=== PATIENT | male | born 1950 | race Caucasian/White ===

== ENCOUNTER 2021-10-30 09:22 | Inpatient (IN) | payer MEDICAID ==
[~2021-10-30] VITALS: Ht 162.6 cm; Wt 58.2 kg
[2021-10-30 10:06] LABS: BASOPHILS % 0.5 % (0.0-2.0); EOSINOPHILS % 2.4 % (0.0-5.0); HEMATOCRIT. 42.6 % (42.0-52.0); HEMOGLOBIN. 14.4 g/dL (14.0-18.0); LYMPHOCYTES % 14.7 % (20.0-50.0); MEAN CORPUSCULAR HEMOGLOBIN 33.4 pg (28.0-32.0); MEAN PLATELET VOLUME 10.2 fl (7.4-10.4); MONOCYTES % 6.8 % (2.0-8.0); NEUTROPHILS % 75.6 % (40.0-76.0); PLATELET 51 x1000/uL (130-400); RED BLOOD CELL COUNT 4.31 mill/uL (4.7-6.1); RED CELL DISTRIBUTION WIDTH 14.9 % (11.6-14.6)
[2021-10-30 10:11] LABS: CHLORIDE 96 mEq/L (98-107)
[2021-10-30] MEDS ORDERED: POTASSIUM CHLORIDE 20MEQ TABLET SR PO NR (10:30)
[2021-10-30] MEDS ORDERED: POTASSIUM CHLORIDE 20MEQ TABLET SR PO SCH (10:45)
[2021-10-30 11:24] LABS: CLARITY URINE CLEAR (CLEAR); COLOR URINE YELLOW (YELLOW); KETONES URINE TRACE (NEGATIVE); LEUKOCYTE ESTERASE URINE NEGATIVE (NEGATIVE); NITRITE URINE NEGATIVE (NEGATIVE); OCCULT BLOOD URINE NEGATIVE (NEGATIVE); PROTEIN URINE NEGATIVE (NEGATIVE); SPECIFIC GRAVITY URINE 1.004 (1.005-1.030); UROBILINOGEN URINE 0.2 E.U./dL (0.2-1.0)
[2021-10-30] MEDS ORDERED: PANTOPRAZOLE SODIUM 40 MG/VIAL IV NR (12:30)
[2021-10-30] MEDS ORDERED: MAGNESIUM 2 G PREMIX 50 ML IV NR (12:30)
[2021-10-30] MEDS ORDERED: ONDANSETRON HCL 4MG/2ML INJ IV PRN (13:30)
[2021-10-30] MEDS ORDERED: GUAIFENESIN 200MG/10ML SUGAR FREE UDC PO PRN (13:30)
[2021-10-30] MEDS ORDERED: CLONIDINE 0.1MG TABLET PO PRN (13:30)
[2021-10-30] MEDS ORDERED: MAGNESIUM/ALUMINUM HYDROXIDE/SIMETHICONE 30ML UDC PO PRN (13:30)
[2021-10-30] MEDS ORDERED: ACETAMINOPHEN 325MG TABLET PO PRN ×2 (13:30)
[2021-10-30] MEDS ORDERED: NALOXONE HCL 0.4MG/ML VIAL IV PRN (13:45)
[2021-10-30] MEDS: SODIUM CHLORIDE 0.9% 1,000 ML IV SCH ×2 (14:11→22:30)
[2021-10-30 16:00] VITALS: BP 143/68
[2021-10-30 16:26] VITALS: BP 143/68
[2021-10-30 16:54] LABS: CARCINO EMBRYONIC ANTIGEN 4.8 ng/ml
[2021-10-30 20:00] VITALS: BP 155/67
[2021-10-31] VITALS: BP 136/78
[2021-10-31 04:00] VITALS: BP 153/87
[2021-10-31 06:14] LABS: BASOPHILS % 0.7 % (0.0-2.0); EOSINOPHILS % 3.8 % (0.0-5.0); HEMATOCRIT. 38.1 % (42.0-52.0); HEMOGLOBIN. 12.6 g/dL (14.0-18.0); LYMPHOCYTES % 19.8 % (20.0-50.0); MEAN CORPUSCULAR HEMOGLOBIN 33.2 pg (28.0-32.0); MEAN CORPUSCULAR VOLUME 99.9 fL (80.0-94.0); MEAN PLATELET VOLUME 9.5 fl (7.4-10.4); MONOCYTES % 9.6 % (2.0-8.0); NEUTROPHILS % 66.1 % (40.0-76.0); PLATELET 59 x1000/uL (130-400); RED BLOOD CELL COUNT 3.81 mill/uL (4.7-6.1); RED CELL DISTRIBUTION WIDTH 15.1 % (11.6-14.6)
[2021-10-31 06:39] LABS: CHLORIDE 108 mEq/L (98-107)
[2021-10-31 06:56] LABS: PHOSPHORUS 2.6 mg/dL (2.5-4.9)
[2021-10-31 08:00] VITALS: BP 142/67
[2021-10-31] MEDS: SODIUM CHLORIDE 0.9% 1,000 ML IV SCH (09:18)
[2021-10-31] MEDS: OMEPRAZOLE 20MG CAPSULE EXTENDED RELEASE PO SCH (09:18)
[2021-10-31] MEDS: HYDROCODONE/ACETAMINOPHEN 5/325MG TABLET PO PRN ×2 (10:16→14:40)
[2021-10-31 12:00] VITALS: BP 143/84
[2021-10-31 16:00] VITALS: BP 122/62
[2021-10-31 20:00] VITALS: BP 137/67
[2021-11-01 04:00] VITALS: BP 147/69
[2021-11-01] MEDS: OMEPRAZOLE 20MG CAPSULE EXTENDED RELEASE PO SCH (06:34)
[2021-11-01 06:54] LABS: HEMOGLOBIN. 12.8 g/dL (14.0-18.0); MEAN CORPUSCULAR HEMOGLOBIN 33.7 pg (28.0-32.0); MEAN CORPUSCULAR VOLUME 99.8 fL (80.0-94.0); MEAN PLATELET VOLUME 9.1 fl (7.4-10.4); PLATELET 74 x1000/uL (130-400); RED BLOOD CELL COUNT 3.81 mill/uL (4.7-6.1); RED CELL DISTRIBUTION WIDTH 15.3 % (11.6-14.6)
[2021-11-01 07:00] LABS: PROTHROMBIN TIME 10.9 sec (9.6-11.0)
[2021-11-01 07:29] LABS: CHLORIDE 109 mEq/L (98-107)
[2021-11-01 08:00] VITALS: BP 120/70
[2021-11-01] MEDS ORDERED: OMEP20CA14 PO ×3 (08:58→10:47)
[2021-11-01 09:00] VITALS: BP 120/70
[2021-11-01] MEDS ORDERED: LOPERAMIDE HCL 2MG CAPSULE PO NR (09:15)
[2021-11-01] MEDS ORDERED: LOPE2CAP PO (10:47)
[2021-11-01 12:50] LABS: PLATELET ESTIMATE DECREASED
== END 2021-11-01 11:00 | disposition home or self-care (01) | DRG 253 ==
LOC: ER 09:22 → 7WST 12:44 → EDBEDREQ 12:51 → ENRESERV 13:17 → CANRESERV 13:17 → SUPCPDRO 13:18 → ENRESERV 13:29
PROVIDERS: ADMIT Internal Medicine; ATTEND Internal Medicine
DX: K92.2 Gastrointestinal hemorrhage, unspecified (principal); D69.6 Thrombocytopenia, unspecified; C80.1 Malignant (primary) neoplasm, unspecified; E87.1 Hypo-osmolality and hyponatremia; R16.0 Hepatomegaly, not elsewhere classified; D53.9 Nutritional anemia, unspecified; K76.0 Fatty (change of) liver, not elsewhere classified; E11.9 Type 2 diabetes mellitus without complications; E87.6 Hypokalemia; R74.01 Elevation of levels of liver transaminase levels; E80.6 Other disorders of bilirubin metabolism; Z79.82 Long term (current) use of aspirin; Z90.49 Acquired absence of other specified parts of digestive tract
CPT/HCPCS: 36415; 74176; 76705; 80048; 80053; 80076; 81003; 82248; 82378; 82607; 82728; 82746; 83540; 83550; 83735; 84100; 84443; 85025; 85044; 93005; 99285; C9113; J3475